=== PATIENT | male | born 1950 | race Caucasian/White ===

== ENCOUNTER 2016-05-16 08:25 | Inpatient (IN) | payer BC ==
--- NOTE | 2016-04-27 13:44 | PAT Medication Instructions ---
Service Date Apr 27, 2016. Current Home Medication List Aspirin (Aspirin Ec), 81 MG PO QAM Metoprolol Tartrate (Lopressor) (Lopressor), 50 MG PO BID Pantoprazole (Protonix), 40 MG PO QAM Paroxetine (Paxil), 20 MG PO QAM Simvastatin (Zocor), 20 MG PO QPM Medication Instructions For Your Scheduled Surgery - Take the following medications the morning of surgery with a sip of water: Metoprolol Tartrate (Lopressor) (Lopressor), 50 MG PO BID Pantoprazole (Protonix), 40 MG PO QAM Paroxetine (Paxil), 20 MG PO QAM Aspirin (Aspirin Ec), 81 MG PO QAM (okay to continue per surgeon) - Take the following medications as scheduled the night before surgery: Metoprolol Tartrate (Lopressor) (Lopressor), 50 MG PO BID Simvastatin (Zocor), 20 MG PO QPM If you have any questions please call us at [phone] (Yamilet Dunn PA-C) or [phone] or [phone]
[2016-04-27 14:21] LABS: URINE APPEARANCE CLEAR (CLEAR); URINE BILIRUBIN NEG (NEG); URINE COLOR YELLOW; URINE NITRITE NEG (NEG); URINE PH 7.5 (4.5-7.5); URINE SPECIFIC GRAVITY 1.012 (1.000-1.030); UROBILINOGEN NEG (NEG)
[2016-04-27 14:22] LABS: BASO % 0.9 %; BASO ABS # 0.06 K/uL (0-0.2); COMPLETE YES; EOS % 3.9 %; HEMATOCRIT 41.3 % (42-52); IG% 0.7 %; LYMPH % 24.4 %; LYMPH ABS # 1.69 K/uL (1.2-3.4); MEAN CELL VOLUME 100.2 fL (80-100); MEAN CORPUSCULAR HEMOGLOBIN 36.2 pg (25-34); MEAN CORPUSCULAR HGB CONC 36.1 g/dl (32-36); MEAN PLATELET VOLUME 10.2 fL (7.4-10.4); MONO % 11.7 %; NEUT % 58.4 %; PLATELET COUNT 172 K/uL (130-400); RED BLOOD COUNT 4.12 M/uL (4.7-6.1); WHITE BLOOD COUNT 6.93 K/uL (4.8-10.8)
[2016-04-27 14:28] LABS: MANUAL MICROSCOPIC REQUIRED? NO; REVIEW REQ? NO
[2016-04-27 14:45] LABS: BUN/CREATININE RATIO 9.8 (10-20); CREATININE 0.86 mg/dl (0.60-1.40); POTASSIUM 4.5 mmol/L (3.5-5.1)
[2016-04-27 14:57] LABS: CALCIUM 9.3 mg/dl (8.5-10.1)
--- NOTE | 2016-04-27 14:57 | DIAGNOSTIC IMAGING REPORT ---
CHEST 2 VIEWS ROUTINE CLINICAL HISTORY: Preoperative evaluation COMPARISON STUDY: No previous studies for comparison. FINDINGS: There are mediastinal surgical clips. Note is made of mild elevation/eventration of the right hemidiaphragm. No pneumothorax or pleural effusion is present. Linear left lower lung opacity is suggestive of atelectasis. There is no consolidation. Pulmonary vascularity is normal. Cardiac size is at the upper limits of normal. Cardiac stents are noted. IMPRESSION: No acute cardiopulmonary findings. Electronically signed by: Brandon Frederick M.D. 04/27/2016 2:55 PM
[~2016-05-16] VITALS: Ht 175.3 cm; Wt 92.2 kg
[2016-05-16] VITALS (10 sets, daily range): BP systolic 114–132; BP diastolic 72–88; PULSE 67–102; TEMP 36.4–36.9; O2SAT 91–97; Ht 175.3 cm; Wt 92.2 kg
--- NOTE | 2016-05-16 07:35 | History & Physical Bridge Note ---
H&P Re-Evaluation Bridge Note: I have examined the patient, reviewed the History & Physical and in the interval since the performance of the History & Physical I have noted the following changes of clinical significance: No changes noted
--- NOTE | 2016-05-16 07:37 | History and Physical ---
History & Physical Date May 16, 2016. Chief Complaint back and leg pain History of Present Illness The patient is a 65 year old male with complaints of Additional History Hepatic Disease: No Endocrine Disorder: No Kidney Disease: No Hypertension: Yes Heart Disease: No Bleeding Tendencies: No Infectious Diseases: No Allergies Coded Allergies: No Known Allergies (Unverified , 04/27/16) Home Medications Scheduled Aspirin (Aspirin Ec), 81 MG PO QAM Metoprolol Tartrate (Lopressor) (Lopressor), 50 MG PO BID Pantoprazole (Protonix), 40 MG PO QAM Paroxetine (Paxil), 20 MG PO QAM Simvastatin (Zocor), 20 MG PO QPM Physical Examination Skin: warm/dry, no rash Eyes: normal inspection, EOMI, sclerae normal ENT: normal ENT inspection, pharynx normal Head: normocephalic, atraumatic Neck: supple, no adenopathy, trachea midline Respiratory/Chest: lungs clear, normal breath sounds, no respiratory distress Cardiovascular: regular rate, rhythm, no edema, no murmur Abdomen / GI: normal bowel sounds, non tender Back: normal inspection Extremities: normal inspection, normal range of motion Neurologic/Psych: no motor/sensory deficits, alert, normal reflexes, oriented x 3 Diagnosis spinal stenosis Plan of Treatment decompression fusion L4-5
[~2016-05-16 08:25] MED LIST: ASPI81TA28 PO; ATROPINE SULFATE 0.1 MG/ML 5ML SYR IV PRN; CEFAZOLIN 2000 MG/60 ML D5W IV SCH; EpHEDrine SULFATE INJ 50 MG/ML AMP IV PRN; FENTANYL CITRATE INJ 50 MCG/1 ML 2 ML VIAL IV PRN; HYDROmorphone INJ 1 MG/ML SYR IV PRN; LACTATED RINGER'S 1000ML 1,000 ML IV SCH; METO50TA16 PO; ONDANSETRON INJ 2 MG/ML 2 ML VIAL IV PRN; PANT40TA PO; PARO1TAB27 PO; SIMV20TA2 PO
[2016-05-16] MEDS ORDERED: FENTANYL CITRATE INJ 50 MCG/1 ML 2 ML VIAL ONE ×3 (10:35→12:20)
[2016-05-16] MEDS ORDERED: MIDAZOLAM HCL 1 MG/ML 2ML VIAL ONE (10:35)
[2016-05-16] MEDS ORDERED: HYDROmorphone INJ 2 MG/ML SYR/VIAL ONE ×2 (11:36→12:42)
[2016-05-16] MEDS ORDERED: BACITRACIN 50000 UNIT VIAL IR ONE (11:53)
[2016-05-16] MEDS ORDERED: BUPIVACAINE/EPINEPHRINE 0.5% MPF 1:200,000 30 ML VIAL INJ ONE (11:53)
[2016-05-16] MEDS ORDERED: DEXAMETHASONE SOD INJ 4 MG/ML VIAL ONE (12:21)
[2016-05-16] MEDS ORDERED: ROCURONIUM BROMIDE 10 MG/ML 5 ML VIAL ONE (12:21)
[2016-05-16] MEDS ORDERED: LIDOCAINE HCL 2% 2 ML VIAL (20MG/ML) ONE (12:21)
[2016-05-16] MEDS ORDERED: PROPOFOL IV EMULSION 10 MG/ML 20 ML VIAL IV ONE (12:21)
[2016-05-16] MEDS ORDERED: EpHEDrine SULFATE 50MG/5ML SYR ONE ×2 (12:21→12:42)
[2016-05-16] MEDS ORDERED: FLOSEAL HEMOSTATIC MATRIX 10ML TOP ONE (12:36)
[2016-05-16] MEDS ORDERED: SODIUM CHLORIDE 0.9% 1000ML 1,000 ML IV SCH (12:40)
--- NOTE | 2016-05-16 12:40 | [facility] Post Operative Brief Note ---
Immediate Operative Summary Operative Date May 16, 2016. Pre-Operative Diagnosis spinal stenosis Post-Operative Diagnosis same as pre-op Procedure(s) Performed L4-L5 Lumbar Laminectomy, Decompression, Pedicle Screw Fixation, Placement of Interbody Device L4-L5, Posterolateral Fusion with use of vertical spine Surgeon Dr. Bryon Spain Planer Off Bearer Surgeon(s) Carlota Finn PA-C Estimated Blood Loss 180ML Findings stenosis Specimens NONE
[2016-05-16] MEDS ORDERED: GLYCOPYRROLATE INJ 0.2 MG/ML VIAL ONE (12:42)
[2016-05-16] MEDS ORDERED: NEOSTIGMINE METHYLSULFATE 1 MG/ML 10ML VIAL ONE (12:42)
[2016-05-16] MEDS ORDERED: ONDANSETRON INJ 2 MG/ML 2 ML VIAL ONE (12:42)
[2016-05-16] MEDS ORDERED: KETOROLAC TROMETHAMINE 30 MG/ML VIAL ONE (12:42)
[2016-05-16] MEDS ORDERED: PROMETHAZINE HCL INJ 12.5 MG in SODIUM CHLORIDE 0.9% 50ML 50 ML IV PRN (12:45)
[2016-05-16] MEDS ORDERED: NALOXONE HCL 0.4 MG/1 ML VIAL/CARP IV PRN ×2 (12:45)
[2016-05-16] MEDS ORDERED: BISACODYL 10 MG SUPP PR PRN (12:45)
[2016-05-16] MEDS ORDERED: METOCLOPRAMIDE HCL INJ 5 MG/ML 2 ML VIAL IV PRN (12:45)
[2016-05-16] MEDS ORDERED: MAGNESIUM HYDROXIDE SUSP 30 ML UDC PO PRN (12:45)
[2016-05-16] MEDS ORDERED: SOD PHOSPHATE/SOD BIPHOSPHATE ENEMA 132 ML BTL PR PRN (12:45)
[2016-05-16] MEDS ORDERED: DO NOT ADMINISTER PNEUMOCOCCAL VACCINE PRN ×2 (12:45)
[2016-05-16] MEDS ORDERED: DO NOT ADMINISTER FLU VACCINE PRN ×3 (12:45)
[2016-05-16] MEDS ORDERED: ACETAMINOPHEN IV 100 ML IV PRN (12:45)
[2016-05-16] MEDS ORDERED: ONDANSETRON INJ 2 MG/ML 2 ML VIAL IV PRN (12:45)
[2016-05-16] MEDS ORDERED: LORAZEPAM 0.5 MG TAB PO PRN (12:45)
[2016-05-16] MEDS ORDERED: ACETAMINOPHEN 500 MG TAB PO PRN (12:45)
[2016-05-16] MEDS ORDERED: FAMOTIDINE 20 MG TAB PO PRN (12:45)
[2016-05-16] MEDS ORDERED: ALUMINUM/MAGNESIUM SUSP 30 ML UDC PO PRN (12:45)
[2016-05-16] MEDS ORDERED: hydrOXYzine HCL 25 MG TAB PO PRN (12:45)
[2016-05-16] MEDS ORDERED: LORAZEPAM INJ 0.5 MG in SYRINGE 0.75 ML IV PRN (12:45)
[2016-05-16] MEDS ORDERED: ESMOLOL HCL 10 MG/ML 10 ML VIAL ONE (13:09)
--- NOTE | 2016-05-16 13:12 | OPERATIVE REPORT ---
DATE OF OPERATION: 05/16/2016 PREOPERATIVE DIAGNOSES: Spinal stenosis, spondylolisthesis neural foraminal stenosis. POSTOPERATIVE DIAGNOSIS: Same. PROCEDURE PERFORMED: 1. Lumbar decompression, medial facetectomy, and foraminotomy L3-L4, L4-L5. 2. Posterior spinal fusion L4-L5. 3. Placement posterior instrumentation using Orthros rods and screws L4-L5. 4. Interbody fusion L4-L5. 5. Placement of PEEK cage 14 x 26 at L4-L5. 6. Placement of locally harvested morcellized autograft in posterior gutters. 7. Placement of fiber net and OsteoStrux in the interbody space and posterior gutters. SURGEON: Dr. Bryon Spain. CLOTH WINDER: Due to the complex nature of the procedure, the entire surgery was performed with the payroll and benefits assistant of RAYMOND Puga. The prosthetic assistant, under direct supervision, was involved in the actual performance of all aspects of the surgical procedure including hemostasis, tissue retraction and incision, instrument management, patient positioning, and wound closure. ANESTHESIA: General. DISPOSITION: The patient awakened and taken to PACU in stable condition. HISTORY OF PATIENT'S PROBLEMS: This is a 65-year-old male who presents with the above-mentioned diagnosis. After failing an extensive course of nonoperative care, elected to undergo the above-mentioned procedure. Risks, benefits, pros, cons, and alternatives were outlined in detail preoperatively. DESCRIPTION OF PROCEDURE: The patient was met preoperatively and the case discussed and all questions were addressed. At that point the patient was taken back to operative suite and after undergoing successful general intubation by the department of anesthesia was placed in prone position on Cole table atop the Jaden frame. All bony prominences were well padded and the eyes were inspected to ensure there was no external pressure placed upon them. At this point, the lumbar spine was prepped and draped in normal sterile fashion. Sharp dissection with the assistance of Bovie cautery was performed down to and exposing the lamina and transverse processes of L4-L5 bilaterally. From a caudal to cephalad fashion, complete laminectomy of L5, partial laminectomy of L3 was performed addressing severe lateral recess and foraminal disease, particularly at L4-L5 on the right. After this was complete, pedicle screws were placed in L4-L5 bilaterally with the assistance of fluoroscopy and through a transforaminal approach on the right, a complete diskectomy of L4-L5 was performed, endplates curetted to subcortical bleeding bone and a 14 x 26 mm PEEK cage filled fiber net OsteoStrux tapped into position. The rods were then compressed, locked into final position bilaterally and transverse processes of L4-L5 burred to subcortical bleeding bone. Fiber net, OsteoStrux and remaining locally harvested morselized autograft was placed in the posterior gutters. A 7 flat ROBBI drain was inserted. Incision was closed with 1-0 Vicryl in the fascia, 2-0 Vicryl subcutaneously, 4-0 Monocryl for final skin closure. Steri-Strips and sterile dressing placed. The patient was awakened and taken to PACU in stable condition. I attest to the content of the Intraoperative Record and any orders documented therein. Any exceptio ns are noted below.
--- NOTE | 2016-05-16 13:22 | DIAGNOSTIC IMAGING REPORT ---
INTRAOPERATIVE RADIOGRAPHS CLINICAL HISTORY: L4-L5 spinal fusion. Fluoroscopy time: 8 seconds. FINDINGS: 2 spot fluoroscopic views of the lower lumbar spine are presented. There has been discectomy at L4-L5 with laminectomy and posterior fusion at this level. Interpedicular screws are present at both levels. The orthopedic hardware appears intact. IMPRESSION: Intraoperative images from L4 to L5 spinal fusion as above. Electronically signed by: Tenzin Galeas M.D. 05/16/2016 1:20 PM
--- NOTE | 2016-05-16 13:40 | Anesthesiology Progress Note ---
Anesthesia Post Op Note Date & Time May 16, 2016 at 13:40 Vital Signs Pain Intensity: 0 Vital Signs Past 12 Hours Date Time Temp Pulse Resp B/P Pulse Ox O2 Delivery O2 Flow Rate FiO2 05/16/16 13:23 131/81 05/16/16 13:21 89 15 100 05/16/16 13:21 85 15 05/16/16 13:18 145/81 05/16/16 13:16 93 15 98 05/16/16 13:16 93 15 05/16/16 13:14 153/84 05/16/16 13:11 99 15 99 05/16/16 13:11 100 15 05/16/16 13:09 171/84 05/16/16 13:06 36.5 87 14 154/90 95 Mask 10 05/16/16 13:06 77 10 05/16/16 13:06 82 10 96 05/16/16 08:59 36.6 67 20 132/88 97 Room Air Notes Mental Status: alert / awake / arousable, participated in evaluation Pt Amnestic to Procedure: Yes Nausea / Vomiting: adequately controlled Pain: adequately controlled Airway Patency, RR, SpO2: stable & adequate BP & HR: stable & adequate Hydration State: stable & adequate Anesthetic Complications: no major complications apparent
[2016-05-16] MEDS: HYDROmorphone HCL 0.5MG/ML 50 ML CASSETTE IV PRN ×2 (14:09→23:12)
[2016-05-16] MEDS: LACTATED RINGER'S 1000ML 1,000 ML IV SCH ×2 (15:06→19:28)
[2016-05-16] MEDS: CEFAZOLIN IV 2,000 MG in DEXTROSE 5% 50ML 50 ML IV SCH (19:28)
[2016-05-16] MEDS: DEXAMETHASONE INJ 6 MG in SYRINGE 0 ML IV SCH (19:28)
[2016-05-16] MEDS: SIMVASTATIN 20 MG TAB PO SCH (20:34)
[2016-05-16] MEDS: DOCUSATE SODIUM/SENNA 50/8.6MG TAB PO SCH (20:34)
[2016-05-16] MEDS: METOPROLOL TARTRATE 50 MG TAB PO SCH (20:34)
[2016-05-17] VITALS (7 sets, daily range): BP systolic 103–117; BP diastolic 60–84; PULSE 64–94; TEMP 36.4–36.8; O2SAT 84–93
[2016-05-17] MEDS: LACTATED RINGER'S 1000ML 1,000 ML IV SCH (01:40)
[2016-05-17] MEDS: CEFAZOLIN IV 2,000 MG in DEXTROSE 5% 50ML 50 ML IV SCH (03:40)
[2016-05-17] MEDS: DEXAMETHASONE INJ 6 MG in SYRINGE 0 ML IV SCH ×2 (03:41→12:19)
[2016-05-17] MEDS ORDERED: NURSING VERBAL MED ORDER ONE (05:15)
[2016-05-17] MEDS ORDERED: HYDROmorphone INJ 1 MG/ML SYR IV PRN (06:00)
[2016-05-17] MEDS ORDERED: DC PCA SCH (06:00)
[2016-05-17 06:58] LABS: BASO % 0.1 %; BASO ABS # 0.01 K/uL (0-0.2); COMPLETE YES; HEMATOCRIT 34.9 % (42-52); IG% 0.5 %; LYMPH ABS # 0.73 K/uL (1.2-3.4); MEAN CELL VOLUME 97.8 fL (80-100); MEAN CORPUSCULAR HEMOGLOBIN 34.5 pg (25-34); MEAN CORPUSCULAR HGB CONC 35.2 g/dl (32-36); MEAN PLATELET VOLUME 10.2 fL (7.4-10.4); MONO % 3.3 %; NEUT % 92.1 %; PLATELET COUNT 144 K/uL (130-400); RED BLOOD COUNT 3.57 M/uL (4.7-6.1); WHITE BLOOD COUNT 18.14 K/uL (4.8-10.8)
[2016-05-17 07:34] LABS: BUN/CREATININE RATIO 8.8 (10-20); CALCIUM 8.8 mg/dl (8.5-10.1); POTASSIUM 4.1 mmol/L (3.5-5.1)
--- NOTE | 2016-05-17 08:09 | Anesthesiology Progress Note ---
Anesthesia Post Op Note Date & Time May 17, 2016 at 08:08 Vital Signs Vital Signs Past 12 Hours Date Time Temp Pulse Resp B/P Pulse Ox O2 Delivery O2 Flow Rate FiO2 05/17/16 07:00 36.8 93 16 110/84 84 Room Air 05/17/16 07:00 92 2.0 05/17/16 03:25 36.8 94 18 111/68 92 Room Air 05/16/16 23:55 Room Air 05/16/16 23:26 36.7 89 20 117/80 91 Room Air 05/16/16 20:30 92 114/72 Notes Mental Status: alert / awake / arousable, participated in evaluation Pt Amnestic to Procedure: Yes Nausea / Vomiting: adequately controlled Pain: adequately controlled Airway Patency, RR, SpO2: stable & adequate BP & HR: stable & adequate Hydration State: stable & adequate Anesthetic Complications: no major complications apparent
--- NOTE | 2016-05-17 08:35 | PROGRESS NOTE ---
DATE: 05/17/2016 DATE: 05/17/2016. SUBJECTIVE: Postop day 1. Back pain controlled. Leg pain improved. Vital signs stable. T-max 36.8. ROBBI drained 70 mL. Hematocrit this a.m. is 34.9. OBJECTIVE: On exam, he has good strength to testing. Appears comfortable. ASSESSMENT: Status post lumbar decompression and fusion. PLAN: At this time, will initiate physical therapy, advance his bowel regimen and hopefully discharge home tomorrow.
[2016-05-17] MEDS: PANTOprazole SOD 40 MG TAB PO SCH (09:12)
[2016-05-17] MEDS: ASPIRIN 81 MG ECTAB PO SCH (09:12)
[2016-05-17] MEDS: OXYCODONE HCL IR 5 MG TAB (IMMEDIATE RELEASE) PO PRN ×3 (09:12→20:47)
[2016-05-17] MEDS: METOPROLOL TARTRATE 50 MG TAB PO SCH ×2 (09:12→20:47)
[2016-05-17] MEDS: PAROXETINE 20 MG TAB PO SCH (09:12)
[2016-05-17] MEDS: SIMVASTATIN 20 MG TAB PO SCH (20:47)
[2016-05-17] MEDS: DOCUSATE SODIUM/SENNA 50/8.6MG TAB PO SCH (20:47)
[2016-05-18] MEDS: POLYETHYLENE (MIRALAX) 17 GM PACK PO SCH ×2 (05:38→11:18)
[2016-05-18 06:04] VITALS: BP 124/78; PULSE 68; TEMP 36.9; O2SAT 90
[2016-05-18] MEDS: PAROXETINE 20 MG TAB PO SCH (07:18)
[2016-05-18] MEDS: ASPIRIN 81 MG ECTAB PO SCH (07:19)
[2016-05-18] MEDS: PANTOprazole SOD 40 MG TAB PO SCH (07:19)
[2016-05-18] MEDS: METOPROLOL TARTRATE 50 MG TAB PO SCH (07:19)
[2016-05-18] MEDS: OXYCODONE HCL IR 5 MG TAB (IMMEDIATE RELEASE) PO PRN ×2 (07:25→12:34)
[2016-05-18] MEDS ORDERED: RXC5 PO (07:37)
--- NOTE | 2016-05-18 07:37 | Discharge Instructions ---
Discharge Instructions Admission Reason for Admission: Lumbar Spinal Stenosis Discharge Discharge Diagnosis / Problem: stenosis Discharge Goals Goal(s): Improve function Activity Recommendations Activity Limitations: per Instructions/Follow-up section . Instructions / Follow-Up Instructions / Follow-Up ACTIVITY RECOMMENDATIONS: SELF CARE INSTRUCTIONS AFTER THORACIC/LUMBAR FUSIONS 1. You may walk to your tolerance. It is good exercise for your legs and back. Expect some back and intermittent leg aches and pains. 2. You may perform "counter-top" level activities (make a sandwich, marianela with a project, etc.). 3. No bending or lifting of more than 10 pounds or back twisting of any nature (roll like a log when turning in bed). 4. You may ride in a car for 20-30 minutes at a time. No driving until after your first visit with your doctor. 5. Frequent changes of position and restricting sitting to 30 minutes at a time will help limit the amount of back spasms and stiffness you may experience. 6. You may discontinue the use of ambulatory aids (cane, crutches, etc.) once your strength and confidence allow. 7. You may nursing project coordinator the shower and let water strike your incision when you arrive home at least once daily. Do not take a tub bath, sit in a hot tub or go into a swimming pool until after your first recheck in the office. SPECIAL CARE INSTRUCTIONS: VERY IMPORTANT TO READ AND REVIEW A. Your surgical incision has been closed with a cosmetic suture under the skin that will dissolve in about 6 weeks. In 14 days, you can use a pair of clean scissors and cut the suture that is left outside of the skin at the ends of your incision. 1. The small skin tapes can be removed 7 days after surgery if they have not fallen off by that point. 2. You may keep the wound open to air as much as possible to promote healing after post-op day number 5 unless told otherwise by your doctor. 3. If you think the wound looks like it is becoming infected (redness or worsening drainage) and/or you are experiencing fever, chill or worsening back pain and muscle spasms, contact the office so that we may evaluate you as soon as possible. B. Complications are uncommon, but please contact us if you have any signs or symptoms of: 1. wound infection (fever higher than 102.5 degrees F, redness, separation of wound, drainage, or increasing pain from the incision) 2. blood clots in legs (pain, swelling, redness and warmth in legs) 3. urinary tract infection (fever higher than 102.5 degrees F, burning upon urination or increased frequency of urination) 4. nerve problems (inability to walk on your toes or heels, numbness, loss of bowel or bladder control) 5. any other symptoms that concern you C. Please call the office at if you have any concerns or questions about your operation or recovery. D. No smoking! Smoking drastically decreases the chance of a solid fusion. E. Do not take any anti-inflammatory medications (Indocin, Advil, Motrin, Aspirin, Naprosyn, etc.) as these may inhibit the chance of a solid fusion. Tylenol is okay to take for pain. MANAGING PAIN AFTER SPINAL SURGERY 1. Narcotic medication is intended for short-term use and will be provided for surgical pain. Surgical pain usually lasts for a period of 4-6 weeks. Narcotic medication includes Percocet, Vicodin, Darvocet, Tylenol #3 or Lortab. 2. Longer-term pain is more appropriately treated with non-narcotic medication such as Tylenol ES. 3. Muscle spasm is not appropriately treated with narcotics. Muscle relaxers such as Soma, Flexeril or Skelaxin can be used along with Tylenol ES. 4. Remember that we all live with some "aches and pains". This is not unusual or uncommon after an injury or as we get older. a. Back pain is expected and may include muscle spasms for 4 to 6 weeks after surgery. The pain should gradually improve. If the pain worsens for no apparent reason, please contact the office. b. Intermittent leg pain may also be experienced and should not be concerned about unless it worsens for no apparent reason. If so, please contact the office. 5. We will provide appropriate medication within the normal guidelines of their prescribed use. We will also be very cautious and aware of potential abuse and extended duration of patients' medication needs. a. Pain medications are for your comfort and to assist with sleep and rest so that the tissue can heal. They are not provided in order to return to normal activity and should not be used through the day. To do so or worsening pain at night can result from ongoing tissue damage and development of tolerance to the prescribed medicine. 6. Please allow 2-3 days to process refills. Prescriptions will not be mailed but must be picked up at the office. FOLLOW UP VISIT: Keep your scheduled follow-up appointment. Any questions, please call the office at . Current Hospital Diet Patient's current hospital diet: Regular Diet Discharge Diet Recommended Diet: Regular Diet Procedures Procedures Performed: L4-L5 Lumbar Laminectomy, Decompression, Pedicle Screw Fixation, Placement of Interbody Device L4-L5, Posterolateral Fusion with use of vertical spine Pending Studies Studies pending at discharge: no Medical Emergencies . Who to Call and When: Medical Emergencies: If at any time you feel your situation is an emergency, please call 911 immediately. . Non-Emergent Contact Non-Emergency issues call your: Primary Care Provider . "Provider Documentation" section prepared by Bryon Spain. VTE Core Measure Inpt VTE Proph given/why not?: Felix Marks, SCD's
[2016-05-18 07:55] VITALS: O2SAT 94
--- NOTE | 2016-05-18 09:49 | DISCHARGE SUMMARY ---
PRINCIPAL DIAGNOSIS: Spinal stenosis. HOSPITAL COURSE FOLLOWS: On 05/16/2016 patient underwent lumbar decompression and fusion, tolerated this well and taken to the orthopedic floor postoperatively. Postop day #1, he was up and ambulatory, quite comfortable. Progressed to postop day #2. ROBBI drain decreased appropriately. Subsequently discharged home. Discharge orders and instructions found on the chart for further review.
[2016-05-18 10:34] VITALS: BP 124/78; PULSE 68; TEMP 36.9; O2SAT 94
== END 2016-05-18 13:22 | disposition home or self-care (01) | DRG 460 ==
LOC: ENRESERVDT → ENRESERVTM → C.ACU 08:25 → C.3E 10:30
PROVIDERS: ADMIT Orthopaedic Surgery Orthopaedic Surgery of the Spine; ATTEND Orthopaedic Surgery Orthopaedic Surgery of the Spine
PROC: 0ST20ZZ Resection of Lumbar Vertebral Disc, Open Approach (ICD-10-PCS; principal; 2016-05-16 10:00)
PROC: 0SG00AJ Fusion of Lumbar Vertebral Joint with Interbody Fusion Device, Posterior Approach, Anterior Column, Open Approach (ICD-10-PCS; principal; 2016-05-16 10:00)
PROC: 0SG0071 Fusion of Lumbar Vertebral Joint with Autologous Tissue Substitute, Posterior Approach, Posterior Column, Open Approach (ICD-10-PCS; principal; 2016-05-16 10:00)
PROC: 01NB0ZZ Release Lumbar Nerve, Open Approach (ICD-10-PCS; principal; 2016-05-16 10:00)
DX: M48.06 Spinal stenosis, lumbar region (principal); M54.16 Radiculopathy, lumbar region; I25.10 Atherosclerotic heart disease of native coronary artery without angina pectoris; I10 Essential (primary) hypertension; E78.5 Hyperlipidemia, unspecified; K21.9 Gastro-esophageal reflux disease without esophagitis; F41.9 Anxiety disorder, unspecified; F32.9 Major depressive disorder, single episode, unspecified; F17.210 Nicotine dependence, cigarettes, uncomplicated; E66.9 Obesity, unspecified; Z68.30 Body mass index [BMI] 30.0-30.9, adult; I25.2 Old myocardial infarction; Z95.1 Presence of aortocoronary bypass graft; Z95.5 Presence of coronary angioplasty implant and graft; Z79.82 Long term (current) use of aspirin; Z79.899 Other long term (current) drug therapy

== ENCOUNTER 2023-05-29 05:51 | Inpatient (IN) ==
--- NOTE | 2023-05-09 15:03 | PAT Medication Instructions ---
Medication Instructions Date of Service May 09, 2023 Home Medications aspirin 81 mg capsule 81 mg PO QAM coenzyme Q10 100 mg capsule (CoQ-10) 100 mg PO QAM dicyclomine 10 mg capsule 10 mg PO DAILY ud empagliflozin 10 mg tablet (Jardiance) 10 mg PO QAM gabapentin 400 mg capsule 400 mg PO TID lisinopril 2.5 mg tablet 2.5 mg PO QAM metoprolol succinate 25 mg tablet,extended release 24 hr 25 mg PO QAM nitroglycerin 0.4 mg sublingual tablet 0.4 mg sublingual UD PRN Chest Pain pantoprazole 40 mg tablet,delayed release (Protonix) 40 mg PO QAM paroxetine HCl 20 mg tablet (Paxil) 20 mg PO QAM rosuvastatin 20 mg tablet (Crestor) 20 mg PO HS spironolactone 25 mg tablet (Aldactone) 25 mg PO QAM Continue as directed nitroglycerin 0.4 mg sublingual tablet 0.4 mg sublingual UD PRN Chest Pain (if needed) ASK your prescriber and surgeon aspirin 81 mg capsule 81 mg PO QAM STOP taking 2 weeks before surgery (or as soon as possible if surgery is within 2 weeks) coenzyme Q10 100 mg capsule (CoQ-10) 100 mg PO QAM DO NOT take the morning of surgery dicyclomine 10 mg capsule 10 mg PO DAILY ud lisinopril 2.5 mg tablet 2.5 mg PO QAM spironolactone 25 mg tablet (Aldactone) 25 mg PO QAM Take morning of surgery With a small sip of water, OTHERWISE NOTHING TO EAT OR DRINK AFTER MIDNIGHT: gabapentin 400 mg capsule 400 mg PO TID metoprolol succinate 25 mg tablet,extended release 24 hr 25 mg PO QAM pantoprazole 40 mg tablet,delayed release (Protonix) 40 mg PO QAM paroxetine HCl 20 mg tablet (Paxil) 20 mg PO QAM Take evening before surgery dicyclomine 10 mg capsule 10 mg PO DAILY ud gabapentin 400 mg capsule 400 mg PO TID rosuvastatin 20 mg tablet (Crestor) 20 mg PO HS STOP taking 3 days before surgery empagliflozin 10 mg tablet (Jardiance) 10 mg PO QAM Other Notes If you have any questions please call us at [phone] or [phone] or or [phone]
--- NOTE | 2023-05-19 12:53 | Anesthesiology Consultation ---
Date of Service May 19, 2023 Assessment & Plan (1) Encounter for pre-operative examination: Chart Review Chart Review: Acceptable Risk for Surgery (pending cardio clearance, any recent cardiac testing, and PCP clearance ) and Patient seen in Pre Admission Testing - Awaiting cardio clearance (05/17/23) (along with any recent cardiac testing) ([facility]) - Awaiting PCP clearance 05/18/23 (Dr. Nguyen) - Check BSG AM DOS Per PAT appt on 05/19/23, patient tested Covid positive 05/11/23 (symptoms started several days prior) (runny nose, coughing, body aches- symptoms has since resolved). No recent illness/disease exposures. Will leave to surgeon's discretion if preop Covid testing needed Teaching & Discussion Pre-Anesthesia Teaching/Discussion Notes: Instructed NPO after midnight before surgery,except medications with 15 cc of water. Medication instructions provided according to the PAT guidelines. History Surgery Operation Date: 05/29/23 07:45 Proposed Procedures p L3-L4 Decompression and Fusion, L4-L5 Hardware Removal, Spinal Cord Monitoring - Bryon Spain, Height/Weight Height: 5 ft 9 in Weight: 90.6 kg Allergies Allergy/AdvReac Type Severity Reaction Status Date / Time atorvastatin [From Lipitor] Allergy Intermediate Muscle Pain Verified 05/19/23 12:57 Medications Home Medications Medication Instructions Recorded Confirmed Last Taken aspirin 81 mg capsule 81 mg PO QAM 05/09/23 05/09/23 Unknown coenzyme Q10 100 mg capsule 100 mg PO QAM 05/09/23 05/09/23 Unknown (CoQ-10) dicyclomine 10 mg capsule 10 mg PO DAILY ud 05/09/23 05/09/23 Unknown empagliflozin 10 mg tablet 10 mg PO QAM 05/09/23 05/09/23 Unknown (Jardiance) gabapentin 400 mg capsule 400 mg PO TID 05/09/23 05/09/23 Unknown lisinopril 2.5 mg tablet 2.5 mg PO QAM 05/09/23 05/09/23 Unknown metoprolol succinate 25 mg 25 mg PO QAM 05/09/23 05/09/23 Unknown tablet,extended release 24 hr nitroglycerin 0.4 mg sublingual 0.4 mg sublingual UD PRN Chest Pain 05/09/23 05/09/23 Unknown tablet pantoprazole 40 mg tablet,delayed 40 mg PO QAM 05/09/23 05/09/23 Unknown release (Protonix) paroxetine HCl 20 mg tablet (Paxil) 20 mg PO QAM 05/09/23 05/09/23 Unknown rosuvastatin 20 mg tablet (Crestor) 20 mg PO HS 05/09/23 05/09/23 Unknown spironolactone 25 mg tablet 25 mg PO QAM 05/09/23 05/09/23 Unknown (Aldactone) Past Medical History Medical History (Updated 05/22/23 @ 09:28 by Yelena Belcher PA-C) DM type 2 (diabetes mellitus, type 2) Patient denies history of diabetes - states Jardiance is for cardiac reasons Hgb A1C 6.0 at [facility] appt 05/22/23 Spinal stenosis IBS (irritable bowel syndrome) Stable GERD (gastroesophageal reflux disease) Well controlled and stable TMJ click No jaw locking HLD (hyperlipidemia) HTN (hypertension) CHF (congestive heart failure) CAD (coronary artery disease) s/p cardiac stents (at least one to LAD- does not have stent cards) History of myocardial infarction 1997 Exercise / Class Metabolic Activity II 4-5 Yardwork/Stairs/Walk up hill (one flight of stairs - no chest pain or SOB ) Past Surgical History Surgical History (Updated 05/19/23 @ 13:01 by Yelena Belcher PA-C) History of lumbar fusion History of wisdom tooth extraction History of removal of cyst multiple S/P insertion of spinal cord stimulator Educated to bring remote DOS History of colonoscopy H/O heart artery stent History of cardiac catheterization multiple. [facility] [place]. Most recent 7-8 years ago. Past Anesthesia History No Hx of Anesthesia Complications and No Family Hx of Anesthesia Complications History of PONV No Hx of PONV and No Hx of Motion Sickness Social History Smoking Status: Former smoker Do You Dip or Chew Tobacco: No Smoking End Date: Quit 2020 Hx Alcohol Use: Yes alcohol intake frequency: a few times a month Hx Substance Use: No substance use type: does not use Review of Systems Patient denies chest pain, shortness of breath, dyspnea on exertion, cough, wheezing, palpitations. No hx of seizures, stroke, apnea/snoring. No hx of blood clots or blood transfusions Physical Exam Vital Signs VITALS BP 117/80 P 73 TEMP 97.4 SP02 94% RESP 16 Constitutional no acute distress ENMT Mouth: + small oral opening (); no TMJ clicking Thyromental Distance: > or= 3.5 Finger Breadths (3.5) Mallampati Class: III Caps to side teeth and molars Neck neck extension not limited Respiratory normal respiratory effort; no respiratory distress Auscultation: lungs clear to auscultation bilaterally; no wheezes Cardiovascular Rate/Rhythm: regular rate and regular rhythm Heart Sounds: no murmur Vessels: no carotid bruit Musculoskeletal Spine: no pain with cervical ROM Extremities: extremities normal to inspection Psychiatric Orientation: alert Lab Results Anesthesia Preop Results Results Anesthesia Widget: WBC 5.11 K/ul (4.8-10.8) 05/19/23 Hgb 15.1 g/dl (14.0-18.0) 05/19/23 Hct 42.0 % (42.0-52.0) 05/19/23 Plt 192 K/uL (130-400) 05/19/23 Na 137 mmol/L (136-145) 05/19/23 K 4.2 mmol/L (3.5-5.1) 05/19/23 Cl 101 mmol/L (98-107) 05/19/23 CO2 28 mmol/L (21-32) 05/19/23 BUN 16 mg/dl (6-23) 05/19/23 Creat 0.95 mg/dl (0.6-1.4) 05/19/23 Glucose Level 94 mg/dl (70-99(Fasting)) 05/19/23 PT 10.9 Seconds (9.0-12.0) 05/19/23 PTT 27 Seconds (21-31) 05/19/23 INR 1.0 (0.9-1.1) 05/19/23 HA1c 6.0 % (4.5-5.6) H 05/19/23 Urine Color Yellow 05/19/23 Urine Appearance Clear (Clear) 05/19/23 Urine pH 6.0 (4.5-7.5) 05/19/23 Urine Specific Damar 1.009 (1.000-1.030) 05/19/23 Urine Protein Negative (Negative) 05/19/23 Urine Glucose (UA) 3+ (Negative) H 05/19/23 Urine Ketones Negative (Negative) 05/19/23 Urine Blood Negative (Negative) 05/19/23 Urine Nitrite Negative (Negative) 05/19/23 Urine Bilirubin Negative (Negative) 05/19/23 Urine Urobilinogen Negative (Negative) 05/19/23 Urine Leukocyte Esterase Negative (Negative) 05/19/23 Blood Type O Negative 05/19/23 Antibody Screen NEGATIVE 05/19/23 Testing Electrocardiogram Date: 05/17/23 SR at 70bpm, TX 150, QRS 110, QTC 387 Old anterior infarct Diffuse T wave abnormality (Done at cardiac clearance appt) Chest X-Ray Date: 05/19/23 FINDINGS: Small linear scarlike density again noted within the left lung base. Otherwise, the lungs are clear. The heart is normal in size. Spinal stimulator leads and coronary artery stents are again noted. No acute fractures identified. There are surgical clips at the superior mediastinum. Mild eventration of the right hemidiaphragm, unchanged. IMPRESSION: No significant change compared to the prior study. No acute process.
[2023-05-29] MEDS ORDERED: ceFAZolin 2000MG 2,000 MG/15 ML SYR IV SCH (06:00)
[2023-05-29] MEDS ORDERED: CeleBREX 200 MG CAP PO SCH (06:00)
[2023-05-29] MEDS ORDERED: GABAPENTIN 300 MG CAP PO SCH (06:00)
[2023-05-29] MEDS ORDERED: LR 15ML/HR IV SCH (06:00)
[2023-05-29] MEDS ORDERED: ACETAMINOPHEN 500 MG TAB PO SCH (06:00)
[2023-05-29] MEDS ORDERED: LR 60ML/HR IV SCH (06:00)
[2023-05-29] MEDS ORDERED: MIDAZOLAM HCL 1 MG/ML 2ML VIAL ONE (06:53)
[2023-05-29] MEDS ORDERED: DEXAMETHASONE SOD INJ 4 MG/ML VIAL ONE (06:53)
[2023-05-29] MEDS ORDERED: ONDANSETRON INJ 2 MG/ML 2 ML VIAL ONE (06:53)
[2023-05-29] MEDS ORDERED: LIDOCAINE 2% 2 ML VIAL/AMP(20MG/ML) INFIL ONE (06:53)
[2023-05-29] MEDS ORDERED: ROCURONIUM BROMIDE 10 MG/ML 5 ML VIAL IV ONE ×2 (06:53→09:05)
[2023-05-29] MEDS ORDERED: PROPOFOL IV EMULSION 10 MG/ML 20 ML VIAL IV ONE (06:53)
[2023-05-29] MEDS ORDERED: fentaNYL citrate PF 100 MCG/2 ML VIAL ONE (06:54)
[2023-05-29] MEDS ORDERED: ATROPINE SULFATE 0.1 MG/ML 10ML SYR IV PRN (06:56)
[2023-05-29] MEDS ORDERED: ePHEDrine sulfate 50 MG/ML AMP IV PRN (06:56)
[2023-05-29] MEDS ORDERED: ONDANSETRON INJ 2 MG/ML 2 ML VIAL IV PRN (06:56)
[2023-05-29] MEDS ORDERED: HYDROmorphone INJ 2 MG/ML SYR/VIAL IV PRN (06:56)
[2023-05-29] MEDS ORDERED: fentaNYL citrate PF 100 MCG/2 ML VIAL IV PRN (06:56)
[2023-05-29] MEDS ORDERED: PROMETHAZINE HCL 6.25 MG in SODIUM CHLORIDE 0.9% 50 ML IV PRN (06:56)
[2023-05-29] MEDS ORDERED: BUPIVACAINE/EPINEPHRINE 0.5% MPF 1:200,000 30 ML VIAL ONE (07:12)
[2023-05-29] MEDS ORDERED: ceFAZolin 330 MG/ML 1 GM VIAL ONE (07:12)
--- NOTE | 2023-05-29 07:44 | History & Physical Bridge Note ---
Date of Service May 29, 2023 History & Physical Bridge Note I have examined the patient, reviewed the History & Physical and in the interval since the performance of the History & Physical I have noted the following changes of clinical significance: no changes noted
--- NOTE | 2023-05-29 07:45 | History & Physical Report ---
Date of Service May 29, 2023 Assessment & Plan (1) Lumbar stenosis with neurogenic claudication: Plan: L3-L4 decompression and fusion, L4-L5 hardware removal History of Present Illness Chief Complaint: Back and leg pain Primary Care Provider: Elayne Serrano DO This is a 72-year-old male who presents with worsening back and leg pain after failing course of nonoperative care is here for surgical invention. Allergies Allergy/AdvReac Type Severity Reaction Status Date / Time atorvastatin [From Lipitor] Allergy Intermediate Muscle Pain Verified 05/29/23 06:35 Home Medications Medication Instructions Recorded Confirmed Type aspirin 81 mg capsule 81 mg PO QAM 05/09/23 05/29/23 History coenzyme Q10 100 mg capsule 100 mg PO QAM 05/09/23 05/29/23 History (CoQ-10) dicyclomine 10 mg capsule 10 mg PO DAILY ud 05/09/23 05/29/23 History empagliflozin 10 mg tablet 10 mg PO QAM 05/09/23 05/09/23 History (Jardiance) gabapentin 400 mg capsule 400 mg PO TID 05/09/23 05/29/23 History lisinopril 2.5 mg tablet 2.5 mg PO QAM 05/09/23 05/29/23 History metoprolol succinate 25 mg 25 mg PO QAM 05/09/23 05/29/23 History tablet,extended release 24 hr nitroglycerin 0.4 mg sublingual 0.4 mg sublingual UD PRN Chest Pain 05/09/23 05/29/23 History tablet pantoprazole 40 mg tablet,delayed 40 mg PO QAM 05/09/23 05/29/23 History release (Protonix) paroxetine HCl 20 mg tablet (Paxil) 20 mg PO QAM 05/09/23 05/29/23 History rosuvastatin 20 mg tablet (Crestor) 20 mg PO HS 05/09/23 05/29/23 History spironolactone 25 mg tablet 25 mg PO QAM 05/09/23 05/29/23 History (Aldactone) Past Med/Surg History Medical History Ischemic cardiomyopathy DM type 2 (diabetes mellitus, type 2) Patient denies history of diabetes - states Jardiance is for cardiac reasons Hgb A1C 6.0 at PAT appt 05/22/23 Spinal stenosis IBS (irritable bowel syndrome) Stable GERD (gastroesophageal reflux disease) Well controlled and stable TMJ click No jaw locking HLD (hyperlipidemia) HTN (hypertension) CHF (congestive heart failure) EF 35-40% per 09/2021 ECHO CAD (coronary artery disease) s/p cardiac stents (at least one to LAD- does not have stent cards) s/p CABG at least two vessels History of myocardial infarction 1997 Surgical History History of coronary artery bypass graft History of lumbar fusion History of wisdom tooth extraction History of removal of cyst multiple S/P insertion of spinal cord stimulator Educated to bring remote DOS History of colonoscopy H/O heart artery stent History of cardiac catheterization multiple. [facility]. Most recent 7-8 years ago. Social History Smoking Status: Former smoker Tobacco Type: Cigarettes Smoking End Date: Quit 2020; Second Hand Exposure: No; Do You Dip or Chew Tobacco: No; Tobacco Cessation Education Requested by Patient: No Hx Alcohol Use: Yes Hx Substance Use: No Preferred Language: Lithuanian Communication Ability: Effective Product Management Specialist Required: No Beliefs That Will Affect Care: None Current Living Situation: Spouse Feels Safe at Home: Yes Safety Concerns: Feels Safe At This Time Assistive Devices: None Physical Exam Physical Exam: Patient is alert and oriented Heart regular in rhythm Lungs clear Results & Data Results & Data Vital Signs (Past 12 Hours) Vital Signs Temp Pulse Resp BP Pulse Ox O2 Del Method 05/29/23 06:42 37.1 C 70 20 131/83 94 Room Air
[2023-05-29] MEDS ORDERED: PHENYLEPHRINE 100MCG/ML 10ML SYR IV ONE (09:04)
[2023-05-29] MEDS ORDERED: SUGAMMADEX SODIUM 200 MG/2 ML VIAL IV ONE (09:07)
[2023-05-29] MEDS ORDERED: ePHEDrine sulfate 50 MG/5 ML SYR ONE (09:16)
[2023-05-29] MEDS ORDERED: FLOSEAL HEMOSTATIC MATRIX 10ML TOP ONE (09:31)
--- NOTE | 2023-05-29 09:56 | Operative Report ---
Post Operative Report Pre & Post Diagnosis Operation Date: 05/29/23 07:45 Pre-Op Diagnosis: Spinal Stenosis of Lumbar Region with Radiculopathy Post-Op Diagnosis: Spinal Stenosis of Lumbar Region with Radiculopathy I identified the patient and participated in the time-out.: Yes Procedure Operation Date: 05/29/23 07:45 Actual Procedures #1 removal of posterior instrumentation L4-5. #2 exploration of fusion L4-5. #3 lumbar decompression bilaterally facetectomies and foraminotomies L2-L3 L3- L4. #4 posterior spinal fusion L3-L4. #5 placement posterior instrumentation L3-L5. #6 interbody fusion L3-L4. #7 placement spiral 14 x 26 mm at L3-L4. #8 placement locally harvested morselized autograft in the posterior gutters. #9 placement of infuse collagen sponge, Koros in the posterior gutters and I factor in the body space. Surgeon Bryon Spain, DO Business Office Technology Instructor None Estimated Blood Loss 100 Findings Consistent with Post-Op Diagnosis Specimens None Indications This is a 72-year-old male well-known to me the presents bones diagnosis after failed course of nonoperative care is here for surgical invention. Description of Procedure Patient met with identified informed consent obtained. Patient then taken to the operative suite underwent patient placed in prone position the [place] table top Jaden frame. All bony promises well-padded eyes inspected to ensure no external precipice upon the. This point lumbar spine was prepped draped in a sterile fashion. Sharp dissection with assistance of Bovie cautery form down to and exposing the lamina transverse processes of L3 and instrumentation L4-5 bilaterally. Then proceeded with the hardware bilaterally explored the fusion mass noted to be mature and intact. Then complete laminectomy of L3 partial laminectomy of L2 including bilateral medial facetectomies and foraminotomies addressing all spinal stenosis. Pedicle screws were then placed in L3-L4-L5 bilaterally with assistance of fluoroscopy and appropriately sized karol contoured and placed. By way of a transforaminal approach on the right complete disc ectomy of L3-L4 was performed endplates guarded to subcortical bleeding bone and a 14 x 26 mm Spira cage with I factor tapped in position. The rods were then compressed locked in final position bilaterally. The transverse processes of L3-L4 burred to subcortical bone. Infuse collagen sponge combined with Koros and local autograft placed in the posterior gutters. 15 round ROBBI drain inserted. The incision was then closed with 1 Vicryl to fascia 2-0 Vicryl subcutaneously and 4 Monocryl for final skin closure. Steri-Strips sterile dressing placed. Patient awakened taken to PACU in stable condition. I attest to the content of the Intraoperative Record and any orders documented therein. Any exceptions are noted below.
--- NOTE | 2023-05-29 09:57 | Fluoroscopy Report ---
FL lumbar spine 2-3V CLINICAL HISTORY: L3-L4 DECOMPRESSION/FUSION COMPARISON STUDY: May 16, 2016 FLUOROSCOPY TIME: 17.1 seconds FLUOROSCOPY IMAGES: 2 EXPOSURE DOSE: 10.21 mGy FINDINGS: Posterior and bilateral screw fusion hardware with discectomy changes at L3-L5. The hardwar e appears intact. No acute fracture or unexpected opaque foreign body identified. Multilevel spondyli tic spurring. IMPRESSION: Fluoroscopic assistance as above. ACT 112: Negative or not required by law. Electronically signed by: Richard Michael M.D. 05/29/2023 9:55 AM
[2023-05-29] MEDS ORDERED: DO NOT ADMINISTER PNEUMOCOCCAL VACCINE PRN (11:06)
[2023-05-29] MEDS ORDERED: NITROGLYCERIN SL 0.4 MG/TAB TAB SL PRN (11:06)
[2023-05-29] MEDS ORDERED: DO NOT ADMINISTER FLU VACCINE PRN (11:06)
[2023-05-29] MEDS ORDERED: HYDROmorphone INJ 0.5 MG/0.5 ML SYR IV PRN ×2 (11:06)
[2023-05-29] MEDS ORDERED: oxyCODONE HCL IR 5 MG TAB (IMMEDIATE RELEASE) PO PRN (11:06)
[2023-05-29] MEDS ORDERED: PHARMACY GLYCEMIC MGMT CONSULT PRN (11:06)
[2023-05-29] MEDS ORDERED: traMADol HCL 50 MG TABLET PO PRN (11:06)
[2023-05-29] MEDS ORDERED: ALUMINUM/MAGNESIUM SUSP 30 ML UDC PO PRN (11:06)
--- NOTE | 2023-05-29 12:01 | Hospitalist Consultation ---
Date of Consultation May 29, 2023 Assessment & Plan (1) Lumbar stenosis with neurogenic claudication: - Post op Day #0 for Lumbar decompression L3-L4 by Dr. Spain - Pain management, bowel regimen and DVT ppx per the primary team - PT/OT consults - Follow am CBC to monitor for acute blood loss (2) CHF (congestive heart failure): (3) CAD (coronary artery disease): (4) HTN (hypertension): (5) HLD (hyperlipidemia): (6) Ischemic cardiomyopathy: - Maintain on tele with significant cardiac hx - Last echo from 10/06/2021 = LV size is moderately dilated. Borderline LVH. LV function is abnormaldiffuse hypokinesis. LV function is mild to moderately decreasedEF 35-40%. Left atrium is moderately enlarged. Mild SD. Grade 1 DD - May continue metoprolol succinate 25 mg daily, lisinopril 2.5 mg daily, rosuvastatin 20 mg HS, spironolactone 25 mg - Baby aspirin to be resumed 24 hrs postoperatively (7) Prediabetes: - Pt reports he has been on Jardiance for 5 years, states this is for his heart. Recently insurance has denied coverage of jardiance. Last A1C was 6.0 on 05/19/23 - Pt denies being told he is prediabetic, will need to continue conversation throughout hospital stay - Diet and exercise to be encouraged - Consider airport operations officer consultation (8) GERD (gastroesophageal reflux disease): - Cont gi ppi with protonix daily DVT ppx: teds, scds Lines: 2 PIV CODE: FULL Dispo: From home, likely to remain in the hospital x 1-2 days Thank you for involving us in the care of Mr. Kapoor. Please do not hesitate to call with questions or concerns. At this time medicine service will follow along. Supervising Physician Co-Signing Physician Notes reviewed findings discussed plan of care with patient History of Present Illness Reason for Consultation: Postop medical management Requesting Physician: Dr. Spain Attending Physician: Bryon Spain, History of Present Illness This is a 72-year-old male with PMHx of HTN, HLD, CAD with 1 stent to LAD, history of systolic and diastolic CHF, GERD, IBS, spinal stenosis who underwent L3- elective L4 lumbar decompression fusion by Dr. Spain today on 05/29/2023. Patient is doing well today, he reports that his right leg pain seems to be "ghosting" him, sort of waxing and waning today he has no residual numbness or tingling in peripheral extremities. His son is with him at bedside and supports the history. He denies any acute complaints currently. Patient has been tolerating fluids without any difficulty, last bowel movement was yesterday. He lives at home with his , who will be able to help him with dressing changes and ADLs as needed. He states that he has never been told he is diabetic although this is written in his chart here - last Hgb A1C of 6.0. He is being transitioned off Jardiance due to insurance coverage issues and being placed on a different oral medication which he cannot recall the name of. Allergies Allergy/AdvReac Type Severity Reaction Status Date / Time atorvastatin [From Lipitor] Allergy Intermediate Muscle Pain Verified 05/29/23 06:35 Home Medications Medication Instructions Recorded Confirmed Type aspirin 81 mg capsule 81 mg PO QAM 05/09/23 05/29/23 History coenzyme Q10 100 mg capsule 100 mg PO QAM 05/09/23 05/29/23 History (CoQ-10) dicyclomine 10 mg capsule 10 mg PO DAILY ud 05/09/23 05/29/23 History empagliflozin 10 mg tablet 10 mg PO QAM 05/09/23 05/29/23 History (Jardiance) gabapentin 400 mg capsule 400 mg PO TID 05/09/23 05/29/23 History lisinopril 2.5 mg tablet 2.5 mg PO QAM 05/09/23 05/29/23 History metoprolol succinate 25 mg 25 mg PO QAM 05/09/23 05/29/23 History tablet,extended release 24 hr nitroglycerin 0.4 mg sublingual 0.4 mg sublingual UD PRN Chest Pain 05/09/23 05/29/23 History tablet pantoprazole 40 mg tablet,delayed 40 mg PO QAM 05/09/23 05/29/23 History release (Protonix) paroxetine HCl 20 mg tablet (Paxil) 20 mg PO QAM 05/09/23 05/29/23 History rosuvastatin 20 mg tablet (Crestor) 20 mg PO HS 05/09/23 05/29/23 History spironolactone 25 mg tablet 25 mg PO QAM 05/09/23 05/29/23 History (Aldactone) oxycodone 5 mg tablet 5 mg PO Q6H PRN pain #30 tabs 05/29/23 Rx tramadol 50 mg tablet 50 mg PO Q6H PRN pain, moderate 05/29/23 Rx #30 tabs Patient History Medical History (Updated 05/29/23 @ 13:07 by Lilly Ralph PA-C) DM type 2 (diabetes mellitus, type 2) Patient denies history of diabetes - states Jardiance is for cardiac reasons Hgb A1C 6.0 at PAT appt 05/22/23 Ischemic cardiomyopathy Spinal stenosis IBS (irritable bowel syndrome) Stable GERD (gastroesophageal reflux disease) Well controlled and stable TMJ click No jaw locking HLD (hyperlipidemia) HTN (hypertension) CHF (congestive heart failure) EF 35-40% per 09/2021 ECHO CAD (coronary artery disease) s/p cardiac stents (at least one to LAD- does not have stent cards) s/p CABG at least two vessels History of myocardial infarction 1997 Surgical History History of coronary artery bypass graft History of lumbar fusion History of wisdom tooth extraction History of removal of cyst multiple S/P insertion of spinal cord stimulator Educated to bring remote DOS History of colonoscopy H/O heart artery stent History of cardiac catheterization multiple. [facility] [place]. Most recent 7-8 years ago. Social History Smoking Status: Former smoker Tobacco Type: Cigarettes Smoking End Date: Quit 2020; Second Hand Exposure: No; Do You Dip or Chew Tobacco: No; Tobacco Cessation Education Requested by Patient: No Hx Alcohol Use: Yes Hx Substance Use: No Preferred Language: Senegalese Communication Ability: Effective Technical Specialist Required: No Beliefs That Will Affect Care: None Current Living Situation: Spouse Feels Safe at Home: Yes Safety Concerns: Feels Safe At This Time Assistive Devices: None Review of Systems Review of Systems: Constitutional: No fever, sweats or chills Eyes: No diplopia, no worsening or blurred vision ENT: normal hearing, no trouble swallowing Respiratory: No cough, sputum, dyspnea at rest or on exertion Cardiovascular: No chest pain, tightness or palpitations Abdomen: No pain, nausea, vomiting, diarrhea or constipation Musculoskeletal: As per HPI, minimal back pain, no other joint pain, calf pain, swelling Neurologic: No weakness, numbness/tingling, or balance problems Psychiatric: No anxiety or depression Skin: No rash or itch Physical Exam Physical Exam: General: awake, alert, no apparent distress Head: Normocephalic, atraumatic ENT: PERRL, EOMI, no pharyngeal exudate, mucous membranes moist Chest: Clear to auscultation, on room air, no adventitious breath sounds Cardiac: Regular rate and rhythm, no murmur, no JVD, normal peripheral pulses, good capillary refill Abdominal: NABS x 4 quadrants, soft, nondistended, nontender to palpation, no rebound or guarding Back: Dressing c/d/i, ROBBI drain draining serosanguineous bloody outs : forte catheter in place draining clear yellow urine Extremities: Normal inspection, no peripheral edema or erythema, calfs nontender to palpation Psych: Normal mood and affect Neuro: AAO x 3, strength intact bilaterally and rated 5/5, no motor deficits, speech is clear, no peripheral sensory deficits Results & Data Results & Data Vital Signs (Past 12 Hours) Vital Signs Temp Pulse Pulse Resp BP BP Pulse Ox 05/29/23 11:27 36.6 C 76 16 111/75 94 05/29/23 11:21 05/29/23 11:00 36.8 C 84 16 111/76 92 05/29/23 10:50 80 12 132/81 96 05/29/23 10:40 36.3 C L 86 14 108/73 97 05/29/23 10:30 82 12 133/77 96 05/29/23 10:20 87 14 116/64 100 05/29/23 10:10 86 12 122/59 L 99 05/29/23 10:00 36.4 C L 88 16 150/82 H 98 05/29/23 06:42 37.1 C 70 20 131/83 94 O2 Del Method O2 Flow Rate 05/29/23 11:27 Nasal Cannula 2 05/29/23 11:21 Nasal Cannula 2 05/29/23 11:00 Nasal Cannula 2 05/29/23 10:50 Nasal Cannula 2 05/29/23 10:40 Nasal Cannula 2 05/29/23 10:30 Nasal Cannula 2 01/15/24 10:20 Oxymask 4 05/29/23 10:10 Oxymask 9 05/29/23 10:00 Oxymask 9 05/29/23 06:42 Room Air
[2023-05-29] MEDS: oxyCODONE HCL IR 5 MG TAB (IMMEDIATE RELEASE) PO PRN ×2 (12:20→19:21)
[2023-05-29] MEDS: INSULIN ASPART PER UNIT CHARGE SC SCH ×3 (12:35→21:45)
--- NOTE | 2023-05-29 13:05 | Pharmacy Report ---
Pharmacy Glycemic Short Note 2 - Date of Service May 29, 2023 - Glycemic Short BSG Results (Last 24 hours): 05/29/23 05/29/23 05/29/23 06:51 10:04 11:30 POC Glucose 107 H 112 H 104 H OUTPATIENT ANTIDIABETIC REGIMEN: * Empagliflozin -- > possibly switched to Farxiga recently (new RX from 05/17/23). Patient reports this is for cardiac/not type II diabetes * A1c 6.0% 05/19/23 ASSESSMENT: * 72 yo male admitted post spinal decompression/fusion. He did not receive steroids in the OR but is ordered to start tomorrow morning. * As patients BSGs 107-112-104 mg/dL have been at goal, will monitor for now with correctional novolog only. * Consider starting carb coverage/basal if BSGs trend upward * Empagliflozin is ordered to start tomorrow AM. PLAN FOR INPATIENT GLYCEMIC CONTROL: * Empagliflozin 10 mg qAM (start 05/30) * Basal insulin * Hold * Bolus insulin * NovoLog per scale ACHS or Q6hrs while NPO * Goal Range: Low 110 mg/dL - High 140 mg/dL * Correction Factor: 50 mg/dL/unit * Nutritional / Prandial insulin per carb ratio of 1 unit per -- grams CHO consumed
--- NOTE | 2023-05-29 13:17 | Anesthesiology Progress Note ---
Date of Service May 29, 2023 Anesthesia Post Procedure Vital Signs Vital Signs: Temp Pulse Pulse Resp BP BP Pulse Ox 05/29/23 12:55 36.3 C L 74 15 115/80 99 05/29/23 12:05 36.4 C L 73 17 121/77 94 05/29/23 11:27 36.6 C 76 16 111/75 94 05/29/23 11:21 05/29/23 11:00 36.8 C 84 16 111/76 92 05/29/23 10:50 80 12 132/81 96 05/29/23 10:40 36.3 C L 86 14 108/73 97 05/29/23 10:30 82 12 133/77 96 05/29/23 10:20 87 14 116/64 100 05/29/23 10:10 86 12 122/59 L 99 05/29/23 10:00 36.4 C L 88 16 150/82 H 98 05/29/23 06:42 37.1 C 70 20 131/83 94 O2 Del Method O2 Flow Rate 05/29/23 12:55 Nasal Cannula 2 05/29/23 12:05 Nasal Cannula 2 05/29/23 11:27 Nasal Cannula 2 05/29/23 11:21 Nasal Cannula 2 05/29/23 11:00 Nasal Cannula 2 05/29/23 10:50 Nasal Cannula 2 05/29/23 10:40 Nasal Cannula 2 05/29/23 10:30 Nasal Cannula 2 05/29/23 10:20 Oxymask 4 05/29/23 10:10 Oxymask 9 05/29/23 10:00 Oxymask 9 05/29/23 06:42 Room Air Pain Intensity Right Leg: Pain Intensity: 2 Back: Pain Intensity: 8 Transfer of Care Handoff Completed per policy Notes Mental Status: alert / awake / arousable and participated in evaluation Patient Amnestic to Procedure: Yes Nausea / Vomiting: adequately controlled Pain: adequately controlled Airway Patency, RR, SpO2: stable & adequate BP & HR: stable & adequate Hydration State: stable & adequate Anesthetic Complications: no major complications apparent and Pt Satisfied with anesthetic care
[2023-05-29] MEDS: GABAPENTIN 400 MG CAP PO SCH ×2 (14:16→21:39)
[2023-05-29] MEDS: ROSUVASTATIN CALCIUM 20 MG TAB PO SCH (21:39)
[2023-05-29] MEDS: traMADol HCL 50 MG TABLET PO PRN (21:40)
[2023-05-30] MEDS: oxyCODONE HCL IR 5 MG TAB (IMMEDIATE RELEASE) PO PRN ×3 (03:34→21:04)
[2023-05-30] MEDS: dexAMETHasone 6 MG in SYRINGE 0 ML IV SCH (07:57)
[2023-05-30] MEDS: GABAPENTIN 400 MG CAP PO SCH ×3 (07:58→20:02)
[2023-05-30] MEDS: DICYCLOMINE HCL 10 MG CAP PO SCH (07:58)
[2023-05-30] MEDS: METOPROLOL SUCC 25MG EXT REL TAB PO SCH (07:59)
[2023-05-30] MEDS: PARoxetine HCL 20 MG TAB PO SCH (07:59)
[2023-05-30] MEDS: PANTOprazole 40 MG TAB PO SCH (07:59)
[2023-05-30] MEDS: ASPIRIN 81 MG ECTAB PO SCH (08:00)
[2023-05-30] MEDS: lisinopril 2.5 MG TAB PO SCH (08:00)
[2023-05-30] MEDS: SPIRONOLACTONE 25 MG TAB PO SCH (08:00)
[2023-05-30] MEDS: EMPAGLIFLOZIN 10 MG TAB PO SCH (08:01)
[2023-05-30] MEDS: INSULIN ASPART PER UNIT CHARGE SC SCH ×4 (08:02→21:03)
[2023-05-30 08:29] LABS: Basophils # (auto) 0.03 K/uL (0.00-0.20); Basophils % (auto) 0.4 %; Eosinophils # (auto) 0.13 K/uL (0.00-0.50); Eosinophils % (auto) 1.8 %; Hematocrit (blood only) 37.3 % (42.0-52.0); Hemoglobin 12.6 g/dl (14.0-18.0); Immature Granulocytes # (auto) 0.03 K/uL (0.01-0.20); Immature Granulocytes % (auto) 0.4 %; Lymphocytes # (auto) 1.37 K/uL (1.20-3.40); Lymphocytes % (auto) 18.6 %; Mean Corpuscular Hemoglobin 34.1 pg (25.0-34.0); Mean Corpuscular Hgb Conc 33.8 g/dL (32.0-36.0); Mean Corpuscular Volume 100.8 fL (80.0-100.0); Mean Platelet Volume 9.8 fL (9.4-12.4); Monocytes # (auto) 1.04 K/uL (0.11-0.59); Monocytes % (auto) 14.1 %; Neutrophils # (auto) 4.75 K/uL (1.40-6.50); Neutrophils % (auto) 64.7 %; Platelet Count 122 K/uL (130-400); RDW Coefficient of Variation 12.6 % (11.5-14.5); White Blood Count 7.35 K/ul (4.8-10.8)
[2023-05-30 08:49] LABS: Calcium 8.3 mg/dl (8.6-10.3); Creatinine Clr Calc Pharmacy 81.8 ml/min; Est GFR (African American) 96.6 ml/min; Est GFR (Non-African American) 83.4 ml/min; Potassium 4.1 mmol/L (3.5-5.1)
--- NOTE | 2023-05-30 10:18 | Orthopedic Progress Note ---
Date of Service May 30, 2023 Assessment & Plan (1) Lumbar stenosis with neurogenic claudication: Plan: At this time continue physical therapy monitor his ROBBI output anticipate discharge home in the next few days. Admission and Anticipated Discharge Date Admission Date: May 29, 2023 Subjective Patient's back pain is controlled right leg pain markedly improved Physical Exam Physical Exam: Patient is in the chair at the bedside. Is constricted testing. Appears comfortable. Results & Data Vital Signs (Past 12 Hours) Vital Signs Temp Pulse Resp BP Pulse Ox O2 Del Method O2 Flow Rate 05/30/23 06:19 37.5 C 85 14 98/65 L 92 Room Air 05/30/23 03:40 37.5 C 90 16 100/64 94 Nasal Cannula 2 05/29/23 23:08 94 Nasal Cannula 2 05/29/23 23:07 37.5 C 84 14 101/64 90 Room Air
--- NOTE | 2023-05-30 15:49 | Hospitalist Progress Note ---
Date of Service May 30, 2023 Assessment & Plan (1) Lumbar stenosis with neurogenic claudication: Plan: S/P lumbar decompression, fusion surgery by Dr. Spain on 05/29/2023 Acute postoperative blood loss anemia Thrombocytopenia Pain control, wound care, DVT prophylaxis per primary team Continue PT OT Incentive spirometry Monitor CBC, currently no indication for blood transfusion Bowel regimen to prevent constipation (2) CHF (congestive heart failure): (3) CAD (coronary artery disease): (4) HTN (hypertension): (5) HLD (hyperlipidemia): (6) Ischemic cardiomyopathy: Plan: - Last echo from 10/06/2021 = LV size is moderately dilated. Borderline LVH. LV function is abnormaldiffuse hypokinesis. LV function is mild to moderately decreasedEF 35-40%. Left atrium is moderately enlarged. Mild MD. Grade 1 DD - continue metoprolol succinate 25 mg daily, lisinopril 2.5 mg daily, rosuvastatin 20 mg HS, spironolactone 25 mg, aspirin Monitor volume status (7) Prediabetes: Plan: - Pt reports he has been on Jardiance for 5 years, states this is for his heart. Recently insurance has denied coverage of jardiance. Last A1C was 6.0 on 05/19/23 - Pt denies being told he is prediabetic, will need to continue conversation throughout hospital stay - Diet and exercise to be encouraged - Consider clinical informatics educator consultation (8) GERD (gastroesophageal reflux disease): Plan: Continue Protonix DVT px: Per primary team CODE STATUS: FULL CODE Admission and Anticipated Discharge Date Admission Date: May 29, 2023 Subjective Patient is seen and examined at bedside Back pain is controlled + Flatus, no bowel movement today Denies any chest pain, dyspnea, dizziness, nausea, vomiting, abdominal pain Review of Systems Review of Systems: All systems reviewed & are unremarkable except as noted in Subjective Physical Exam Physical Exam: Physical Exam: Vitals signs as noted above General Appearance:Moderately built and nourished, no apparent distress Head: normocephalic, Atraumatic Eyes: normal inspection, EOMI Neck: supple, Trachea midline Respiratory/Chest: Normal breath sounds, CTA, No accessory muscle use Cardiovascular: S1, S2, No murmur Abdomen/GI:Soft, Non tender, Bowel sounds present Back:surgical site in dressing, +Drain Extremities/Musculoskeletal:normal inspection, no edema Neurologic/Psych:AAOX3, grossly no focal neurological deficits Skin: normal color, warm Results & Data Results & Data Vital Signs (Past 12 Hours) Vital Signs Temp Pulse Resp BP Pulse Ox O2 Del Method 05/30/23 15:17 36.7 C 80 16 96/63 L 95 Room Air 05/30/23 11:05 94 Room Air 05/30/23 10:51 37.4 C 83 16 103/66 90 Room Air 05/30/23 06:19 37.5 C 85 14 98/65 L 92 Room Air Laboratory Results Short CBC 05/30/23 Range/Units 08:12 WBC 7.35 (4.8-10.8) K/ul Hgb 12.6 L (14.0-18.0) g/dl Hct 37.3 L (42.0-52.0) % Plt Count 122 L (130-400) K/uL BMP 05/30/23 08:12 Sodium 133 L Potassium 4.1 Chloride 100 Carbon Dioxide 30 BUN 12 Creatinine 0.92 Glucose 123 H Calcium 8.3 L
[2023-05-30] MEDS: ROSUVASTATIN CALCIUM 20 MG TAB PO SCH (20:02)
[2023-05-31] MEDS: oxyCODONE HCL IR 5 MG TAB (IMMEDIATE RELEASE) PO PRN (06:15)
[2023-05-31] MEDS: EMPAGLIFLOZIN 10 MG TAB PO SCH (07:40)
[2023-05-31] MEDS: GABAPENTIN 400 MG CAP PO SCH (07:40)
[2023-05-31] MEDS: ASPIRIN 81 MG ECTAB PO SCH (07:43)
[2023-05-31] MEDS: lisinopril 2.5 MG TAB PO SCH (07:44)
[2023-05-31] MEDS: SPIRONOLACTONE 25 MG TAB PO SCH (07:45)
[2023-05-31] MEDS: PARoxetine HCL 20 MG TAB PO SCH (07:45)
[2023-05-31] MEDS: METOPROLOL SUCC 25MG EXT REL TAB PO SCH (07:45)
[2023-05-31] MEDS: PANTOprazole 40 MG TAB PO SCH (07:45)
[2023-05-31] MEDS: dexAMETHasone 6 MG in SYRINGE 0 ML IV SCH (07:46)
[2023-05-31] MEDS: DICYCLOMINE HCL 10 MG CAP PO SCH (07:53)
[2023-05-31] MEDS: INSULIN ASPART PER UNIT CHARGE SC SCH (07:59)
--- NOTE | 2023-05-31 08:18 | Discharge Summary ---
Date of Service May 31, 2023 Admission HPI Per Admitting Provider This is a 72-year-old male who presents with worsening back and leg pain after failing course of nonoperative care is here for surgical invention. Admission Exam (Per Admitting) Constitutional WD/WN, vitals as above Eyes normal visual mohamud by confrontation ENMT external ear and nose normal, oropharynx normal Neck normal visual inspection Respiratory normal respiratory effort Cardiovascular Extremities: normal capillary refill Gastrointestinal (Abdomen) Inspection/Auscultation: abdomen normal to inspection Musculoskeletal Spine: + pain with thoraco-lumbar ROM Gait: normal gait Skin no rashes, warm and dry Neurologic normal touch/pain/proprioception and moves all extremities Psychiatric A+Ox3, euthymic affect Eye Contact: good eye contact Discharge Data Consultations 05/29/23 11:06 Consult Hospitalist Routine Procedures Performed Operation Date: 05/29/23 07:45 Actual Procedures p L3-L4 Decompression and Fusion,(Not Applicable) - Bryon Spain DO s L4-L5 Hardware Removal(Not Applicable) - Bryon Spain DO Hospital Course (1) Lumbar stenosis with neurogenic claudication: Spencer is being discharged home on postoperative day 2 status post heart removal L4-5, TLIF L3-4. He had an uneventful hospital course. Lab values stable. He is ambulating the hallways. Pain is controlled. He is passing flatus but no bowel movement. Discharge Instructions ACTIVITY RECOMMENDATIONS: SELF CARE INSTRUCTIONS AFTER THORACIC/LUMBAR FUSIONS 1. You may walk to your tolerance. It is good exercise for your legs and back. Expect some back and intermittent leg aches and pains. 2. You may perform "counter-top" level activities (make a sandwich, marianela with a project, etc.). 3. No bending or lifting of more than 10 pounds or back twisting of any nature (roll like a log when turning in bed). 4. You may ride in a car for 20-30 minutes at a time. No driving until after your first visit with your doctor. 5. Frequent changes of position and restricting sitting to 30 minutes at a time will help limit the amount of back spasms and stiffness you may experience. 6. You may discontinue the use of ambulatory aids (cane, crutches, etc.) once your strength and confidence allow. 7. You may salvage grinder the shower and let water strike your incision when you arrive home at least once daily. Do not take a tub bath, sit in a hot tub or go into a swimming pool until after your first recheck in the office. SPECIAL CARE INSTRUCTIONS: VERY IMPORTANT TO READ AND REVIEW A. Your surgical incision has been closed with a cosmetic suture under the skin that will dissolve in about 6 weeks. In 14 days, you can use a pair of clean scissors and cut the suture that is left outside of the skin at the ends of your incision. 1. The small skin tapes can be removed 7 days after surgery if they have not fallen off by that point. 2. You may keep the wound open to air as much as possible to promote healing after post-op day number 5 unless told otherwise by your doctor. 3. If you think the wound looks like it is becoming infected (redness or worsening drainage) and/or you are experiencing fever, chill or worsening back pain and muscle spasms, contact the office so that we may evaluate you as soon as possible. B. Complications are uncommon, but please contact us if you have any signs or symptoms of: 1. wound infection (fever higher than 102.5 degrees F, redness, separation of wound, drainage, or increasing pain from the incision) 2. blood clots in legs (pain, swelling, redness and warmth in legs) 3. urinary tract infection (fever higher than 102.5 degrees F, burning upon urination or increased frequency of urination) 4. nerve problems (inability to walk on your toes or heels, numbness, loss of bowel or bladder control) 5. any other symptoms that concern you C. Please call the office at if you have any concerns or questions about your operation or recovery. D. No smoking! Smoking drastically decreases the chance of a solid fusion. E. Do not take any anti-inflammatory medications (Indocin, Advil, Motrin, Aspirin, Naprosyn, etc.) as these may inhibit the chance of a solid fusion. Tylenol is okay to take for pain. MANAGING PAIN AFTER SPINAL SURGERY 1. Narcotic medication is intended for short-term use and will be provided for surgical pain. Surgical pain usually lasts for a period of 4-6 weeks. Narcotic medication includes Percocet, Vicodin, Darvocet, Tylenol #3 or Lortab. 2. Longer-term pain is more appropriately treated with non-narcotic medication such as Tylenol ES. 3. Muscle spasm is not appropriately treated with narcotics. Muscle relaxers such as Soma, Flexeril or Skelaxin can be used along with Tylenol ES. 4. Remember that we all live with some "aches and pains". This is not unusual or uncommon after an injury or as we get older. a. Back pain is expected and may include muscle spasms for 4 to 6 weeks after surgery. The pain should gradually improve. If the pain worsens for no apparent reason, please contact the office. b. Intermittent leg pain may also be experienced and should not be concerned about unless it worsens for no apparent reason. If so, please contact the office. 5. We will provide appropriate medication within the normal guidelines of their prescribed use. We will also be very cautious and aware of potential abuse and extended duration of patients' medication needs. a. Pain medications are for your comfort and to assist with sleep and rest so that the tissue can heal. They are not provided in order to return to normal activity and should not be used through the day. To do so or worsening pain at night can result from ongoing tissue damage and development of tolerance to the prescribed medicine. 6. Please allow 2-3 days to process refills. Prescriptions will not be mailed but must be picked up at the office. FOLLOW UP VISIT: Keep your scheduled follow-up appointment. Any questions, please call the office at .
[2023-05-31 08:45] LABS: Hematocrit (blood only) 31.9 % (42.0-52.0); Hemoglobin 11.6 g/dl (14.0-18.0); Mean Corpuscular Hgb Conc 36.4 g/dL (32.0-36.0); Mean Corpuscular Volume 99.1 fL (80.0-100.0); Mean Platelet Volume 10.7 fL (9.4-12.4); Platelet Count 125 K/uL (130-400); RDW Coefficient of Variation 12.6 % (11.5-14.5); RDW Standard Deviation 44.1 fL (36.4-46.3); Red Blood Count 3.22 M/uL (4.70-6.10); White Blood Count 10.31 K/ul (4.8-10.8)
[2023-05-31 09:03] LABS: BUN Creatinine Ratio 20.2 (10-20); Calcium 8.7 mg/dl (8.6-10.3); Creatinine Clr Calc Pharmacy 80.1 ml/min; Est GFR (African American) 94.2 ml/min; Est GFR (Non-African American) 81.2 ml/min; Potassium 3.9 mmol/L (3.5-5.1)
[2023-05-31] MEDS: traMADol HCL 50 MG TABLET PO PRN (11:02)
--- NOTE | 2023-05-31 11:42 | Pharmacy Report ---
Pharmacy Glycemic Short Note 2 - Date of Service May 31, 2023 - Glycemic Short BSG Results (Last 24 hours): 05/30/23 05/30/23 05/30/23 11:41 16:49 20:21 Glucose POC Glucose 138 H 149 H 134 H 05/31/23 05/31/23 07:41 08:10 Glucose 154 H POC Glucose 150 H OUTPATIENT ANTIDIABETIC REGIMEN: * Empagliflozin -- > possibly switched to Farxiga recently (new RX from 05/17/23). Patient reports this is for cardiac/not type II diabetes * A1c 6.0% 05/19/23 ASSESSMENT: 05/31: * Patient received/required no insulin yesterday. BSGs yesterday were [phone] mg/dl. * Blood sugars were well controlled on only Empagliflozin 10 mg yesterday. * Fasting BSG today was 150 mg/dl which is slightly elevated from goal but will hold off on basal insulin. * Continued Novolog parameters the same. 05/29/23: * 72 yo male admitted post spinal decompression/fusion. He did not receive steroids in the OR but is ordered to start tomorrow morning. * As patients BSGs 107-112-104 mg/dL have been at goal, will monitor for now with correctional novolog only. * Consider starting carb coverage/basal if BSGs trend upward * Empagliflozin is ordered to start tomorrow AM. PLAN FOR INPATIENT GLYCEMIC CONTROL: * Empagliflozin 10 mg qAM (start 05/30) * Basal insulin * Hold * Bolus insulin * NovoLog per scale ACHS or Q6hrs while NPO * Goal Range: Low 110 mg/dL - High 140 mg/dL * Correction Factor: 50 mg/dL/unit * Nutritional / Prandial insulin per carb ratio of 1 unit per -- grams CHO consumed
--- NOTE | 2023-05-31 14:44 | Hospitalist Progress Note ---
Date of Service May 31, 2023 Assessment & Plan (1) Lumbar stenosis with neurogenic claudication: Plan: S/P lumbar decompression, fusion surgery by Dr. Spain on 05/29/2023 Acute postoperative blood loss anemia Hemoglobin dropped from 15.1 to 11.6; stable Pain control, wound care, DVT prophylaxis per primary team Continue PT OT Incentive spirometry Monitor CBC, currently no indication for blood transfusion Bowel regimen to prevent constipation. Follow-up with PCP as outpatient. (2) CHF (congestive heart failure): (3) CAD (coronary artery disease): (4) HTN (hypertension): (5) HLD (hyperlipidemia): (6) Ischemic cardiomyopathy: Plan: - Last echo from 10/06/2021 = LV size is moderately dilated. Borderline LVH. LV function is abnormaldiffuse hypokinesis. LV function is mild to moderately decreasedEF 35-40%. Left atrium is moderately enlarged. Mild LA. Grade 1 DD - continue metoprolol succinate 25 mg daily, lisinopril 2.5 mg daily, rosuvasta tin 20 mg HS, spironolactone 25 mg, aspirin Monitor volume status (7) Prediabetes: Plan: - Pt reports he has been on Jardiance for 5 years, states this is for his heart. Recently insurance has denied coverage of jardiance. Last A1C was 6.0 on 05/19/23 - Pt denies being told he is prediabetic, will need to continue conversation throughout hospital stay - Diet and exercise to be encouraged - Consider chemical educator consultation (8) GERD (gastroesophageal reflux disease): Plan: Continue Protonix DVT px: Per primary team CODE STATUS: FULL CODE Please note the above document was generated using voice recognition software. It may contain grammatical, syntax or spelling errors. Any formal questions or concerns about the content, text or information contained within the body of this dictation should be directly addressed to the provider for clarification Admission and Anticipated Discharge Date Admission Date: May 29, 2023 Subjective Patient seen and examined at bedside. Comfortable; not in distress. She has not had bowel movement. Denies fever, chills, chest pain, shortness of breath, abdominal pain or urinary symptoms. No significant overnight events Review of Systems Review of Systems: All systems reviewed & are unremarkable except as noted in Subjective Physical Exam Physical Exam: Physical Exam: Vitals signs as noted above General Appearance:Moderately built and nourished, no apparent distress Respiratory/Chest: Normal breath sounds, CTA, No accessory muscle use Cardiovascular: S1, S2, No murmur Abdomen/GI:Soft, Non tender, Bowel sounds present Back:surgical site in dressing, Extremities/Musculoskeletal:normal inspection, no edema Neurologic/Psych:AAOX3, grossly no focal neurological deficits Skin: normal color, warm Results & Data Results & Data Vital Signs (Past 12 Hours) Vital Signs Temp Pulse Resp BP Pulse Ox O2 Del Method 05/31/23 09:51 36.6 C 89 18 108/69 93 05/31/23 07:16 36.6 C 89 18 108/69 93 Room Air
== END 2023-05-31 12:08 | disposition home health service (06) | DRG 454 ==
LOC: ASU 05:51 → 3N 10:01